=== PATIENT | male | born 1965 | race Caucasian/White ===

== ENCOUNTER 2022-07-04 09:07 | Outpatient (REF) | payer OTHER, SELFPAY ==
--- NOTE | ~2022-07-04 | MR_ITS ---
EXAMINATION: MR OF THE BRAIN WITHOUT CONTRAST CLINICAL INFORMATION: 56-year-old with Parkinson's disease. Self-reported left hand tremors. COMPARISON: None TECHNIQUE: Multiplanar multisequence MR imaging of the brain was done without IV contrast. FINDINGS: Brain Volume: Within normal limits within the limitations of qualitative assessment. Structural: No malformations. Brain and Meninges: Scattered foci of FLAIR/T2 signal hyperintensity are seen in the subcortical and deeper periventricular white matter of both cerebral hemispheres with a left parietal predominance, also involving the right subinsular white matter, which are nonspecific findings but likely reflect chronic ischemic microangiopathy. DWI sequence demonstrates no restricted diffusion to suggest acute or subacute cerebral ischemia. Gradient refocused imaging demonstrates no abnormal magnetic susceptibility artifact to suggest hemorrhage, hemosiderin staining or abnormal mineral deposition. No extra-axial fluid collections, space-occupying process or mass effect are identified. Normal appearance to the midbrain, brainstem and cerebellum. Ventricles and Subarachnoid Spaces: The ventricular system and subarachnoid spaces are within normal limits without hydrocephalus. Orbital Structures: The visualized orbital structures are grossly unremarkable within the limitations of the study. Vascular: Signal voids are noted in the visualized major intracranial vessels. Osseous Structures, Sinuses/Mastoids, Extracranial Soft Tissues: Extensive DJD mucosal inflammatory changes are seen in the ethmoid complex and maxillary sinuses bilaterally with some mucosal thickening also in the sphenoid sinus and right frontal sinus. Sinusoidal nasal septal deviation is noted. Visualized extracranial soft tissue structures are grossly unremarkable. Osseous structures are intact. MR/MR head/brain wo con IMPRESSION: 1. White matter T2 hyperintensities in both cerebral hemispheres as discussed above, nonspecific findings, likely reflecting chronic ischemic microangiopathy statistically. 2. No acute or subacute infarct, hemorrhage, extra-axial fluid collection, space-occupying process, mass effect or hydrocephalus. 3. Pansinus mucosal inflammatory changes.
== END 2022-07-04 09:08 | disposition home or self-care (01) ==
LOC: HO.MRI 09:07
PROVIDERS: Visit Provider Psychiatry & Neurology Neurology
DX: G20 Parkinson's disease (principal)
CPT/HCPCS: 70551

== ENCOUNTER → 2023-03-15 14:35 | Outpatient (BNVA) | payer OTHER, SELFPAY | PROVIDERS: PCP Internal Medicine; Visit Provider Psychiatry & Neurology Neurology | DX: G20 Parkinson's disease (principal) ==

== ENCOUNTER 2023-09-18 12:28 | Outpatient (AMB) | payer OTHER, SELFPAY ==
--- NOTE | 2023-09-18 12:12 | MHC.OFFVIS ---
Intake Vital Signs 09/18/23 12:38 Height 6 ft 4 in Weight 190 lb 2 oz BMI 23.1 BP 130/60 Blood Pressure Location Rt brachial Position Sitting Pulse 68 Pulse Source Pulse Oximeter Pulse Oximetry (%) 98 Oxygen Delivery Method Room Air Intake Visit Reasons: 6m f/u lft hand tremors - Confirmed Allergies cats Adverse Reaction (Severe, Uncoded 09/18/23 12:40) Unknown Medication List - Last Reconciled 09/18/23 by Yazmin Marcial MD carbidopa-levodopa 25-100 mg ER 1 tab PO QAM trihexyphenidyl 2 mg PO TID HPI HPI Comments History of Present Illness Details 57y/o right handed male comes for follow up.He increased the dose to trihexyphenidyl 2mg tid- helps at midday . no side effects. he has noticed improvement in his tremors, gait and stiffness. when he misses a dose he notices increase in his tremors. 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 No issues with handwriting, eating, using utensils, dressing, showering, turning in bed , gait issues etc. He denies nausea, constipation, dizziness, diplopia. No change in olfactory sensation. No drooling or change in his voice. Mood is stable. Sleep is good. No acting out.Memory is good No known injury to left shoulder, he had soreness in his left elbow. No family h/o tremors or parkinsons. He has exposure to [employer] insecticides [facility] Surgical History Hx of colonoscopy Family History Brother Colon polyp Father Colon cancer Benign neoplasm of rectum and anal canal Diverticulosis Social History Alcohol intake: current Alcohol intake frequency: holidays/special occasions only Patient Tobacco Use Status: Never used Tobacco Physical Exam Const Orientation/consciousness: patient oriented x3 Neuro Other: UPDRS - 3 Speech 1-Slight loss of expression,diction or volume Facial expression 2-Slight but definite abnormal diminution of facial expression Rest Tremors( head, Upper, lower ) 2-intermittent rest tremors left UE Action and Postural tremors 0-none Rigidity 1-Mild Finger Taps 1-Mild slowing an nurys reductionin amplitude Hand movements 1-mild slowing and or reduction in amplitude Rapid Alternating Movements of Hands 1-Mild slowing and or reduction in amplitude Leg agility 1-mild slowing and reduction in amplitude Arising from a chair 0-Normal Posture 2-moderately stooped posture, definitely abnormal, can be leaning to one side- tilted to right , head tilted to right Gait 1-walks -good stride, stooped with no arm swing on left Postural stability 0-normal Body bradykinesia and hypokinesia 1-minimal slowness,giving movement a deliberate character,could be normal for some persons.Possible reduced amplitude General: patient oriented x3 Cranial nerves: Yes CN's II-XII intact bilaterally Cognition (Neuro): normal cognition Motor exam (neuro): 5/5 motor strength present throughout Coordination: [id number] test normal Assessment & Plan Assessment & Plan (1) Parkinson's disease: Comment: tremor predominant Code(s): G20 - Parkinson's disease Plan I will trial him on sinemet 25/100 CR 1 tab qam Trihexyphenidyl 2mg tid Side effects discussed Increase fluids Discussed diagnosis and differential diagnosis in detail dermatology eval - due to increased risk of skin cancer Medications: New carbidopa-levodopa 25-100 mg ER 1 tab PO QAM 30 tabs 6RF Changed From trihexyphenidyl give with food (meal/snack) 2 mg PO BID 60 tabs 6RF To trihexyphenidyl give with food (meal/snack) 2 mg PO TID 90 tabs 6RF Coding Level of Care Code Est Pt Level 4 (45172) Diagnoses Parkinson's disease G20
[2023-09-18 12:38] VITALS: BP 130/60; PULSE 68; O2SAT 98; BMI 23.1
== END 2023-09-18 13:00 | disposition home or self-care (01) ==
PROVIDERS: PCP Internal Medicine; Visit Provider Psychiatry & Neurology Neurology
DX: G20.A1 Parkinson's disease without dyskinesia, without mention of fluctuations (principal)
CPT/HCPCS: 99214

== ENCOUNTER → 2023-09-18 12:28 | Outpatient (BNVA) | payer OTHER, SELFPAY | PROVIDERS: PCP Internal Medicine; Visit Provider Psychiatry & Neurology Neurology ==

== ENCOUNTER 2024-01-17 13:52 | Outpatient (AMB) | payer OTHER, SELFPAY ==
--- NOTE | 2024-01-17 13:56 | MHC.OFFVIS ---
Intake Vital Signs 01/17/24 14:00 Height 6 ft 4 in Weight 195 lb 4 oz BMI 23.8 BP 120/72 Blood Pressure Location Rt brachial Position Sitting Respiration 16 Pulse 65 Pulse Source Pulse Oximeter Pulse Oximetry (%) 99 Oxygen Delivery Method Room Air Intake Visit Reasons: 4 mo f/u - Hand tremors-LVM Intake Note: Pt presents for a 4 month follow up for tremors of the hands. [employer] Required: No Allergies cats Adverse Reaction (Severe, Uncoded 01/17/24 13:57) Unknown HPI HPI Comments History of Present Illness Details 58y/o right handed male comes for follow up.He is on trihexyphenidyl 2mg tid and sinemet CR 25/100 qam - helps at midday . no side effects.He started yoga in winter and is doing well. He has noticed improvement in his tremors, gait and stiffness. when he misses a dose he notices increase in his tremors. 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 No issues with handwriting, eating, using utensils, dressing, showering, turning in bed , gait issues etc. He denies nausea, constipation, dizziness, diplopia. No change in olfactory sensation. No drooling or change in his voice. Mood is stable. Sleep is good. No acting out.Memory is good No known injury to left shoulder, he had soreness in his left elbow. No family h/o tremors or parkinsons. He has exposure to [employer] insecticides [facility] Medical History (Updated 01/17/24 @ 14:23 by Yazmin Marcial MD) Parkinson's disease without dyskinesia Surgical History Hx of colonoscopy Family History Brother Colon polyp Father Colon cancer Benign neoplasm of rectum and anal canal Diverticulosis Social History Alcohol intake: current Alcohol intake frequency: holidays/special occasions only Patient Tobacco Use Status: Never used Tobacco Physical Exam Vital Signs: Last Vital Signs Pulse 65 01/17/24 14:00 Resp 16 01/17/24 14:00 BP 120/72 01/17/24 14:00 Pulse Ox 99 01/17/24 14:00 Oxygen Delivery Method Room Air 01/17/24 14:00 BMI result Body Mass Index 23.8 Const Orientation/consciousness: patient oriented x3 Neuro Other: UPDRS - 3 Speech 1-Slight loss of expression,diction or volume Facial expression 2-Slight but definite abnormal diminution of facial expression Rest Tremors( head, Upper, lower ) 2-intermittent rest tremors left UE Action and Postural tremors 0-none Rigidity 1-Mild Finger Taps 1-Mild slowing an nurys reductionin amplitude Hand movements 1-mild slowing and or reduction in amplitude Rapid Alternating Movements of Hands 1-Mild slowing and or reduction in amplitude Leg agility 1-mild slowing and reduction in amplitude Arising from a chair 0-Normal Posture 2-moderately stooped posture, definitely abnormal, can be leaning to one side- tilted to right , head tilted to right Gait 1-walks -good stride, stooped with no arm swing on left Postural stability 0-normal Body bradykinesia and hypokinesia 1-minimal slowness,giving movement a deliberate character,could be normal for some persons.Possible reduced amplitude General: patient oriented x3 Cranial nerves: Yes CN's II-XII intact bilaterally Cognition (Neuro): normal cognition Motor exam (neuro): 5/5 motor strength present throughout Coordination: [id number] test normal Assessment & Plan Assessment & Plan (1) Parkinson's disease without dyskinesia: Comment: tremor predominant Code(s): G20.A1 - Parkinson's disease without dyskinesia, without mention of fluctuations Plan Continue sinemet 25/100 CR 1 tab qam Trihexyphenidyl 2mg tid Side effects discussed Increase fluids Discussed diagnosis and differential diagnosis in detail dermatology eval - due to increased risk of skin cancer Coding Level of Care Code Est Pt Level 4 (61822) Diagnoses Parkinson's disease without dyskinesia G20.A1
[2024-01-17 14:00] VITALS: BP 120/72; PULSE 65; RESP 16; O2SAT 99; BMI 23.8
== END 2024-01-17 14:50 | disposition home or self-care (01) ==
PROVIDERS: PCP Internal Medicine; Visit Provider Psychiatry & Neurology Neurology
DX: G20.A1 Parkinson's disease without dyskinesia, without mention of fluctuations (principal)
CPT/HCPCS: 99214

== ENCOUNTER → 2024-01-17 13:52 | Outpatient (BNVA) | payer OTHER, SELFPAY | PROVIDERS: PCP Internal Medicine; Visit Provider Psychiatry & Neurology Neurology ==

== ENCOUNTER 2024-07-17 14:35 | Outpatient (AMB) | payer OTHER, SELFPAY ==
--- NOTE | 2024-07-17 14:44 | A.OFFVIS_ITS ---
Vital Signs 07/17/24 14:45 Height 6 ft 4 in Weight 185 lb 4 oz BMI 22.5 BP 118/70 Blood Pressure Location Rt brachial Position Sitting Pulse 79 Pulse Source Pulse Oximeter Pulse Oximetry (%) 97 Oxygen Delivery Method Room Air Intake Visit Reasons: 6 month F/U Intake Note: Patient presents for a 6 mon follow up. ( Parkinson ) Front End Architect Required: No Accompanied by: Self / Same As Patient Allergies cats Adverse Reaction (Severe, Uncoded 01/17/24 13:57) Unknown Medication List - Last Reconciled 07/17/24 by Yazmin Marcial MD carbidopa-levodopa 25-100 mg ER 1 tab PO QAM trihexyphenidyl 2 mg PO TID HPI Comments Details: 58y/o right handed male comes for follow up. No change since last visit. He is on trihexyphenidyl 2mg tid and sinemet CR 25/100 qam - helps at midday . no side effects.He started yoga in winter and is doing well. He has noticed improvement in his tremors, gait and stiffness. when he misses a dose he notices increase in his tremors. 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 No issues with handwriting, eating, using utensils, dressing, showering, turning in bed , gait issues etc. He denies nausea, constipation, dizziness, diplopia. No change in olfactory sensation. No drooling or change in his voice. Mood is stable. Sleep is good. No acting out.Memory is good No known injury to left shoulder, he had soreness in his left elbow. No family h/o tremors or parkinsons. He has exposure to [employer] insecticides [facility] Medical History Parkinson's disease without dyskinesia Surgical History Hx of colonoscopy Family History Brother Colon polyp Father Colon cancer Benign neoplasm of rectum and anal canal Diverticulosis Social History Alcohol intake: current Alcohol intake frequency: holidays/special occasions only Patient Tobacco Use Status: Never used Tobacco Physical Exam Vital Signs: Last Vital Signs Pulse 79 07/17/24 14:45 BP 118/70 07/17/24 14:45 Pulse Ox 97 07/17/24 14:45 Oxygen Delivery Method Room Air 07/17/24 14:45 BMI result Body Mass Index 22.5 Const Orientation/consciousness: patient oriented x3 Neuro Other: UPDRS - 3 Speech 1-Slight loss of expression,diction or volume Facial expression 2-Slight but definite abnormal diminution of facial expression Rest Tremors( head, Upper, lower ) 2-intermittent rest tremors left UE Action and Postural tremors 0-none Rigidity 1-Mild Finger Taps 1-Mild slowing an nurys reductionin amplitude Hand movements 1-mild slowing and or reduction in amplitude Rapid Alternating Movements of Hands 1-Mild slowing and or reduction in amplitude Leg agility 1-mild slowing and reduction in amplitude Arising from a chair 0-Normal Posture 2-moderately stooped posture, definitely abnormal, can be leaning to one side- tilted to right , head tilted to right Gait 1-walks -good stride, stooped with no arm swing on left Postural stability 0-normal Body bradykinesia and hypokinesia 1-minimal slowness,giving movement a deliberate character,could be normal for some persons.Possible reduced amplitude General: patient oriented x3 Cranial nerves: Yes CN's II-XII intact bilaterally Cognition (Neuro): normal cognition Motor exam (neuro): 5/5 motor strength present throughout Coordination: [id number] test normal Assessment & Plan Assessment & Plan (1) Parkinson's disease without dyskinesia: Comment: tremor predominant Code(s): G20.A1 - Parkinson's disease without dyskinesia, without mention of fluctuations Category: Medical Qualifiers: Fluctuating manifestations: without fluctuating manifestations Javy lified Code(s): G20.A1 - Parkinson's disease without dyskinesia, without mention of fluctuations Plan Continue sinemet 25/100 CR 1 tab qam Trihexyphenidyl 2mg tid Side effects discussed Increase fluids Discussed diagnosis and differential diagnosis in detail dermatology eval - due to increased risk of skin cancer Coding Level of Care Code Est Pt Level 4 (81186) Complex EM visit Add On G2211 Diagnoses Parkinson's disease without dyskinesia or fluctuating manifestations G20.A1 Fluctuating manifestations: without fluctuating manifestations
[2024-07-17 14:45] VITALS: BP 118/70; PULSE 79; O2SAT 97; BMI 22.5
== END 2024-07-17 15:01 | disposition home or self-care (01) ==
PROVIDERS: PCP Internal Medicine; Visit Provider Psychiatry & Neurology Neurology
DX: G20.A1 Parkinson's disease without dyskinesia, without mention of fluctuations (principal)
CPT/HCPCS: 99214

== ENCOUNTER → 2024-07-17 14:35 | Outpatient (BNVA) | payer OTHER, SELFPAY | PROVIDERS: PCP Internal Medicine; Visit Provider Psychiatry & Neurology Neurology ==

== ENCOUNTER 2025-02-16 08:08 | Outpatient (AMB) | payer OTHER, SELFPAY ==
--- NOTE | 2025-02-16 08:10 | A.OFFVIS_ITS ---
Vital Signs 02/16/25 08:11 Height 6 ft 4 in Weight 188 lb 8 oz BMI 22.9 BP 118/76 Blood Pressure Location Rt brachial Position Sitting Intake Visit Reasons: 6 month F/U-LVM Intake Note: patient following up for parkinsons Allergies cats Adverse Reaction (Severe, Uncoded 02/16/25 08:12) Unknown HPI Comments Details: 59y/o right handed male comes for follow up.Feels good, no change since last visit No change since last visit. He is on trihexyphenidyl 2mg tid and sinemet CR 25/100 qam - helps at midday . no side effects.He started yoga in winter and is doing well. He has noticed improvement in his tremors, gait and stiffness. when he misses a dose he notices increase in his tremors. 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 No issues with handwriting, eating, using utensils, dressing, showering, turning in bed , gait issues etc. He denies nausea, constipation, dizziness, diplopia. No change in olfactory sensation. No drooling or change in his voice. Mood is stable. Sleep is good. No acting out.Memory is good No known injury to left shoulder, he had soreness in his left elbow. No family h/o tremors or parkinsons. 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 He has exposure to [employer] insecticides [facility] Medical History Parkinson's disease without dyskinesia Surgical History Hx of colonoscopy Family History Brother Colon polyp Father Colon cancer Benign neoplasm of rectum and anal canal Diverticulosis Social History Alcohol intake: current Alcohol intake frequency: holidays/special occasions only Patient Tobacco Use Status: Never used Tobacco Physical Exam Vital Signs: Last Vital Signs BP 118/76 02/16/25 08:11 BMI result Body Mass Index 22.9 Const Orientation/consciousness: patient oriented x3 Neuro Other: UPDRS - 3 Speech 1-Slight loss of expression,diction or volume Facial expression 2-Slight but definite abnormal diminution of facial expression Rest Tremors( head, Upper, lower ) 2-intermittent rest tremors left UE Action and Postural tremors 0-none Rigidity 1-Mild Finger Taps 1-Mild slowing an nurys reductionin amplitude Hand movements 1-mild slowing and or reduction in amplitude Rapid Alternating Movements of Hands 1-Mild slowing and or reduction in amplitude Leg agility 1-mild slowing and reduction in amplitude Arising from a chair 0-Normal Posture 2-moderately stooped posture, definitely abnormal, can be leaning to one side- tilted to right , head tilted to right Gait 1-walks -good stride, stooped with no arm swing on left Postural stability 0-normal Body bradykinesia and hypokinesia 1-minimal slowness,giving movement a deliberate character,could be normal for some persons.Possible reduced amplitude General: patient oriented x3 Cranial nerves: Yes CN's II-XII intact bilaterally Cognition (Neuro): normal cognition Motor exam (neuro): 5/5 motor strength present throughout Coordination: [id number] test normal Assessment & Plan Assessment & Plan (1) Parkinson's disease without dyskinesia: Comment: tremor predominant Code(s): G20.A1 - Parkinson's disease without dyskinesia, without mention of fluctuations Category: Medical Qualifiers: Fluctuating manifestations: without fluctuating manifestations Qualified Code(s): G20.A1 - Parkinson's disease without dyskinesia, without mention of fluctuations Plan Continue sinemet 25/100 CR 1 tab qam Trihexyphenidyl 2mg tid Side effects discussed Increase fluids Discussed diagnosis and differential diagnosis in detail dermatology eval - due to increased risk of skin cancer Discussed about MRI guided ultrasound therapy Coding Level of Care Code Est Pt Level 4 (55152) Complex EM visit Add On G2211 Diagnoses Parkinson's disease without dyskinesia or fluctuating manifestations G20.A1 Fluctuating manifestations: without fluctuating manifestations
[2025-02-16 08:11] VITALS: BP 118/76; BMI 22.9
== END 2025-02-16 08:32 | disposition home or self-care (01) ==
PROVIDERS: PCP Internal Medicine; Visit Provider Psychiatry & Neurology Neurology
DX: G20.A1 Parkinson's disease without dyskinesia, without mention of fluctuations (principal)
CPT/HCPCS: 99214

== ENCOUNTER 2025-08-19 08:13 | Outpatient (AMB) | payer OTHER, SELFPAY ==
[2025-08-19 08:14] VITALS: BP 114/70; PULSE 64; O2SAT 98; BMI 22.2
--- NOTE | 2025-08-19 08:14 | MHC.OFFVIS ---
Vital Signs 08/19/25 08:14 Height 6 ft 4 in Weight 182 lb 4 oz BMI 22.2 BP 114/70 Pulse 64 Pulse Source Pulse Oximeter Pulse Oximetry (%) 98 Oxygen Delivery Method Room Air Intake Visit Reasons: 6 month F/U (L/M) Intake Note: Follow up Parkinson's disease without dyskinesia, without mention of fluctuations Veterinary Medicine Doctor Required: No Accompanied by: Self / Same As Patient Allergies cats Adverse Reaction (Severe, Uncoded 02/16/25 08:12) Unknown HPI Comments Details: 59y/o right handed male comes for follow up.Feels good, no change since last visit No change since last visit.he is doing well. He is on trihexyphenidyl 2mg tid and sinemet CR 25/100 qam - helps at midday . no side effects.He started yoga in winter and is doing well. He has noticed improvement in his tremors, gait and stiffness. when he misses a dose he notices increase in his tremors. 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 No issues with handwriting, eating, using utensils, dressing, showering, turning in bed , gait issues etc. He denies nausea, constipation, dizziness, diplopia. No change in olfactory sensation. No drooling or change in his voice. Mood is stable. Sleep is good. No acting out.Memory is good No known injury to left shoulder, he had soreness in his left elbow. No family h/o tremors or parkinsons. 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 He has exposure to [employer] insecticides [facility] Medical History Parkinson's disease without dyskinesia Surgical History Hx of colonoscopy Family History Brother Colon polyp Father Colon cancer Benign neoplasm of rectum and anal canal Diverticulosis Social History Alcohol intake: current Alcohol intake frequency: holidays/special occasions only Patient Tobacco Use Status: Never used Tobacco Physical Exam Const Orientation/consciousness: patient oriented x3 Neuro Other: UPDRS - 3 Speech 1-Slight loss of expression,diction or volume Facial expression 2-Slight but definite abnormal diminution of facial expression Rest Tremors( head, Upper, lower ) 2-intermittent rest tremors left UE Action and Postural tremors 0-none Rigidity 1-Mild Finger Taps 1-Mild slowing an nurys reductionin amplitude Hand movements 1-mild slowing and or reduction in amplitude Rapid Alternating Movements of Hands 1-Mild slowing and or reduction in amplitude Leg agility 1-mild slowing and reduction in amplitude Arising from a chair 0-Normal Posture 2-moderately stooped posture, definitely abnormal, can be leaning to one side- tilted to right , head tilted to right Gait 1-walks -good stride, stooped with no arm swing on left Postural stability 0-normal Body bradykinesia and hypokinesia 1-minimal slowness,giving movement a deliberate character,could be normal for some persons.Possible reduced amplitude General: patient oriented x3 Cranial nerves: Yes CN's II-XII intact bilaterally Cognition (Neuro): normal cognition Motor exam (neuro): 5/5 motor strength present throughout Coordination: [id number]-[id number] test normal Assessment & Plan Assessment & Plan (1) Parkinson's disease without dyskinesia: Comment: tremor predominant Code(s): G20.A1 - Parkinson's disease without dyskinesia, without mention of fluctuations Category: Medical Plan Continue sinemet 25/100 CR 1 tab qam Trihexyphenidyl 2mg tid Side effects discussed Increase fluids Discussed diagnosis and differential diagnosis in detail dermatology f/u - had evaluation Discussed about MRI guided ultrasound therapy I will trial him on DREA TAPs tehrapy for his tremors Coding Level of Care Code Est Pt Level 4 (07921) Complex EM visit Add On G2211 Diagnoses Parkinson's disease without dyskinesia G20.A1
== END 2025-08-19 14:42 | disposition home or self-care (01) ==
LOC: HO.HSMS 08:13
PROVIDERS: PCP Internal Medicine; Visit Provider Psychiatry & Neurology Neurology
DX: G20.A1 Parkinson's disease without dyskinesia, without mention of fluctuations (principal)
CPT/HCPCS: 99214